=== PATIENT | female | born 1970 | race Caucasian/White ===

== ENCOUNTER 2022-02-07 13:01 | Emergency (ER) | payer MEDICAID ==
[~2022-02-07] VITALS: Ht 157.5 cm; Wt 95.0 kg
[2022-02-07] MEDS ORDERED: SODIUM CHLORIDE 0.9% 1,000 ML IV ONE ×2 (13:30→13:45)
[2022-02-07] MEDS ORDERED: METOCLOPRAMIDE HCL 10MG/2ML VIAL IV ONE (13:30)
[2022-02-07 14:02] LABS: BASOPHILS % 0.5 % (0.0-2.0); EOSINOPHILS % 0.2 % (0.0-5.0); HEMATOCRIT. 39.5 % (36.0-48.0); HEMOGLOBIN. 13.9 g/dL (12.0-16.0); LYMPHOCYTES % 19.5 % (20.0-50.0); MEAN CORPUSCULAR HEMOGLOBIN 31.7 pg (28.0-32.0); MEAN CORPUSCULAR VOLUME 89.9 fL (81.0-99.0); MEAN PLATELET VOLUME 8.5 fl (7.4-10.4); MONOCYTES % 4.8 % (2.0-8.0); PLATELET 237 x1000/uL (130-400); RED CELL DISTRIBUTION WIDTH 13.4 % (11.6-14.6)
[2022-02-07 14:05] LABS: CHLORIDE 96 mEq/L (98-107)
[2022-02-07 14:14] LABS: BETA HYDROXYBUTYRATE 0.3 mMol/L (0.0-0.3); ETHANOL BLOOD < 10 mg/dL
[2022-02-07] MEDS ORDERED: KETOROLAC 15MG/ML VIAL IV ONE (15:45)
[2022-02-07 16:14] VITALS: BP 166/74
== END 2022-02-07 17:30 | disposition home or self-care (01) ==
LOC: ER 13:43
DX: R51.9 Headache, unspecified (principal); E11.65 Type 2 diabetes mellitus with hyperglycemia
CPT/HCPCS: 36415; 70450; 80053; 80320; 82010; 83605; 83690; 85025; 96361; 96374; 96375; 99284; J1885; J2765; J7030; G0480